=== PATIENT | female | born 1955 ===

== ENCOUNTER 2017-06-17 08:13 | Day surgery (SDC) | payer OTHER, SELFPAY ==
[2017-06-17] MEDS ORDERED: Lactated Ringer's 500 ML IV ONE (09:36)
[2017-06-17] MEDS ORDERED: Midazolam 2 MG/2 ML VIAL ONE (10:31)
[2017-06-17] MEDS ORDERED: Propofol 10 mg/ml Inj (20 ML) ONE (10:31)
[2017-06-17 11:09] VITALS: BP 113/65; PULSE 62; RESP 19; TEMP 96.9; O2SAT 99
== END 2017-06-17 11:54 | disposition home or self-care (01) ==
LOC: H.ENDO 08:13
PROVIDERS: ATTEND Internal Medicine Gastroenterology
DX: Z12.11 Encounter for screening for malignant neoplasm of colon (principal); K64.8 Other hemorrhoids; K57.30 Diverticulosis of large intestine without perforation or abscess without bleeding
CPT/HCPCS: 45378; J2001; J2250; J2704; J7120